=== PATIENT | male | born 1990 ===

== ENCOUNTER 2024-02-01 08:49 | Emergency (ER) | payer OTHER ==
[2024-02-01 08:55] VITALS: BP 144/110; PULSE 90; RESP 20; TEMP 98.4; BMI 29.4
[2024-02-01] MEDS ORDERED: methaDONE HCL 40 MG DISPERSABLE TABLET ONE (09:45)
[2024-02-01] MEDS ORDERED: methaDONE HCL 10 MG TABLET ONE (09:45)
[2024-02-01] MEDS: methaDONE 80 MG, methaDONE 10 MG PO ONE (10:00)
[2024-02-01] MEDS ORDERED: IBUPROFEN 600 MG TABLET (FP) PO ONE (10:27)
[2024-02-01] MEDS ORDERED: ACETAMINOPHEN 500 MG TABLET (FP) ONE (10:27)
[2024-02-01] MEDS: IBUPROFEN 600 MG TABLET (FP) PO ONE (10:31)
[2024-02-01] MEDS: ACETAMINOPHEN 500 MG TABLET (FP) PO ONE (10:31)
== END 2024-02-01 10:31 | disposition home or self-care (01) ==
LOC: JER 08:49
DX: S00.212A Abrasion of left eyelid and periocular area, initial encounter (principal); M54.2 Cervicalgia; V43.52XA Car driver injured in collision with other type car in traffic accident, initial encounter; Y92.410 Unspecified street and highway as the place of occurrence of the external cause
CPT/HCPCS: 70450-TC; 72125-TC; 99284-25

== ENCOUNTER 2024-05-16 11:22 | Emergency (ER) | payer SELFPAY ==
[2024-05-16 11:28] VITALS: BP 136/89; PULSE 95; RESP 20; TEMP 98.2; BMI 27.3
[2024-05-16] MEDS ORDERED: methaDONE HCL 40 MG DISPERSABLE TABLET ONE (12:00)
[2024-05-16] MEDS ORDERED: methaDONE HCL 10 MG TABLET ONE (12:00)
[2024-05-16] MEDS: methaDONE HCL 10 MG TABLET PO ONE (12:12)
== END 2024-05-16 12:14 | disposition home or self-care (01) ==
LOC: JERFT 11:22
DX: Z76.0 Encounter for issue of repeat prescription (principal)
CPT/HCPCS: 99281-25